=== PATIENT | female | born 1960 | race Caucasian/White ===

== ENCOUNTER → 2017-01-23 | Outpatient (CLI) | payer OTHER ==
[~2017-01-23] MED LIST: AC325T; CETI10TA20 PO; CPR500T PO; HYDR50CA PO; METR500T PO; MTP25TSR PO; PNT40TEC PO; RT-ALBUTEROL SULF 2.5 MG/3 ML PRE-MIX VIAL IH ONE
== END ==
LOC: RT 13:48
PROVIDERS: ATTEND Internal Medicine
DX: R06.09 Other forms of dyspnea (principal)
CPT/HCPCS: 94060; 94640; 94726; 94729

== ENCOUNTER → 2017-03-05 | Outpatient (CLI) | payer OTHER ==
[~2017-03-05] MED LIST changes: +CATHETER FLUSH 10 ML SYR IV PRN; +IOHEXOL 350 MG/ML 150 ML (OMNIPAQUE 350) VIAL IV ONE; +NS 100 ML (IVPB) BAG IV ONE; -RT-ALBUTEROL SULF 2.5 MG/3 ML PRE-MIX VIAL IH ONE
[2017-03-05 12:21] LABS: BLOOD UREA NITROGEN 8 MG/DL (7-18); BUN/CREATININE RATIO 11; CREATININE SERUM 0.76 MG/DL (0.60-1.30); GFR ESTIMATED > 60
--- NOTE | 2017-03-05 13:11 | Diagnostic Imaging Report ---
INDICATION: Bilateral edema. TECHNIQUE: Multiple real-time grayscale images were obtained over the lower extremities in various projections bilaterally. Duplex Doppler and color Doppler images were also obtained. FINDINGS: The common femoral, femoral and popliteal veins demonstrate normal response to compression, augmentation and Valsalva. There are no abnormal lower extremity fluid collections or masses. IMPRESSION: No evidence of deep venous thrombosis in either lower extremity. Dictated by: Dictated on workstation # [id number]
--- NOTE | 2017-03-05 13:30 | Diagnostic Imaging Report ---
PROCEDURE: CT angiography of the chest with contrast. TECHNIQUE: Multiple contiguous axial images were obtained through the chest after uneventful bolus administration of intravenous contrast. Reconstructed CTA MIP acquisitions were also performed. INDICATION: Shortness of air. Chest pain. COMPARISON: None. FINDINGS: There is no evidence of acute pulmonary embolus in the first subsegmental division of the pulmonary arteries. Heart size is within normal limits. There is no large pericardial effusion. Few subcentimeter left perihilar lymph nodes are noted. Otherwise, no abnormal mediastinal, hilar, nor axillary adenopathy is identified. There is moderate image degradation of the lung bowser secondary to motion artifact. No focal consolidation, pleural effusion, nor pneumothorax is identified. No pulmonary nodules or masses are seen. Bony structures show no acute abnormalities. No lytic or blastic bony lesion is seen. Included portions of the upper abdomen are unremarkable. IMPRESSION: 1. No evidence of acute pulmonary embolus in the first subsegmental division of pulmonary arteries. 2. Otherwise, no acute cardiopulmonary process. Dictated by: Dictated on workstation # [id number]
== END ==
LOC: RAD 11:53
PROVIDERS: ATTEND Nurse Practitioner Family
DX: R06.00 Dyspnea, unspecified (principal); R94.2 Abnormal results of pulmonary function studies; M79.89 Other specified soft tissue disorders; J45.909 Unspecified asthma, uncomplicated; R07.9 Chest pain, unspecified
CPT/HCPCS: 36415; 71275; 82565; 84520; 93970

== ENCOUNTER → 2018-11-05 | Outpatient (CLI) | payer OTHER ==
[~2018-11-05] MED LIST changes: -CATHETER FLUSH 10 ML SYR IV PRN; -IOHEXOL 350 MG/ML 150 ML (OMNIPAQUE 350) VIAL IV ONE; -NS 100 ML (IVPB) BAG IV ONE; +RT-ALBUTEROL SULF 2.5 MG/3 ML PRE-MIX VIAL INH ONE
== END ==
LOC: RT 15:02
PROVIDERS: ATTEND Nurse Practitioner Family
DX: J42 Unspecified chronic bronchitis (principal); J45.909 Unspecified asthma, uncomplicated; R06.00 Dyspnea, unspecified; R94.2 Abnormal results of pulmonary function studies
CPT/HCPCS: 94060; 94726; 94729

== ENCOUNTER 2018-11-11 05:38 | Outpatient (CLI) | payer OTHER ==
[~2018-11-11] VITALS: Ht 149.9 cm; Wt 79.4 kg
[~2018-11-11 05:38] MED LIST changes: -RT-ALBUTEROL SULF 2.5 MG/3 ML PRE-MIX VIAL INH ONE
[2018-11-11] MEDS ORDERED: CETI10TA20 PO (10:27)
[2018-11-11] MEDS ORDERED: METF-397 PO (10:27)
[2018-11-11] MEDS ORDERED: SERT50TA2 PO (10:27)
[2018-11-11] MEDS ORDERED: METO-351 PO (10:27)
[2018-11-11] MEDS ORDERED: FLUT1BLS IH (10:27)
[2018-11-11] MEDS ORDERED: MONT10TA21 PO (10:27)
== END 2018-11-11 10:32 | disposition home or self-care (01) ==
LOC: PREOP 05:38
PROVIDERS: ATTEND Surgery
DX: Z01.818 Encounter for other preprocedural examination (principal)

== ENCOUNTER 2018-11-18 08:35 | Day surgery (SDC) | payer OTHER ==
[~2018-11-18] VITALS: Ht 149.9 cm; Wt 79.4 kg
[~2018-11-18 08:35] MED LIST changes: +FLUT1BLS IH; +METF-397 PO; +METO-351 PO; +MONT10TA21 PO; +SERT50TA2 PO
[2018-11-18] MEDS ORDERED: LACTATED RINGERS 1,000 ML IV STA (08:43)
[2018-11-18] MEDS ORDERED: LACTATED RINGERS 1,000 ML IV ONE (08:55)
[2018-11-18] MEDS ORDERED: PROPOFOL INJECTION 50 ML IV ONE (09:16)
[2018-11-18] MEDS ORDERED: MIDAZOLAM 2 MG/2 ML (VERSED) VIAL ONE (09:16)
--- NOTE | 2018-11-18 09:27 | Progress Note-Pre Operative ---
Pre-Operative Progress Note H&P Reviewed The H&P was reviewed, patient examined and no changes noted. Date Seen by Provider: November 18, 2018 Time Seen by Provider: 09:25 Date H&P Reviewed: November 18, 2018 Time H&P Reviewed: :25 Pre-Operative Diagnosis: hx washington's, luq abd pain, screening colonoscopy MEENA SULLIVAN DO November 18, 2018 09:27
[2018-11-18] MEDS ORDERED: HURRICAINE EXT TUBE (BENZOCAINE) ONE (09:34)
[2018-11-18] MEDS: HURRICAINE EXT TUBE (BENZOCAINE) XX PRN ×2 (09:40→10:30)
--- NOTE | 2018-11-18 10:13 | Anesthesia-General Post-Op ---
MAC Patient Condition Mental Status/LOC: Same as Preop Cardiovascular: Satisfactory Nausea/Vomiting: Absent Respiratory: Satisfactory Pain: Controlled Complications: Absent Post Op Complications Complications None Follow Up Care/Instructions Patient Instructions None needed. Anesthesiology Discharge Order Discharge Order Patient is doing well, no complaints, stable vital signs, no apparent adverse anesthesia problems. No complications reported per nursing. JAVAD CAT CRNA November 18, 2018 10:13
--- NOTE | 2018-11-18 10:18 | Progress Note-Post Operative ---
Post-Operative Progess Note Surgeon (s)/Assistant Curator (s) Surgeon MEENA SULLIVAN DO Assistant Curator: na Pre-Operative Diagnosis hx washington's, luq abd pain, screening colonoscopy Post-Operative Diagnosis hiatal hernia, washington's, gastritis,diverticulosis, gastric polyp Procedure & Operative Findings Date of Procedure 11/18/18 Procedure Performed/Findings egd c biopsies, colonoscopy c snare polypectomy Anesthesia Type per instrument processing tech Estimated Blood Loss Estimated blood loss (mL): none Specimens/Packing Specimens Removed antrum body and ge, sigmoid polyp MEENA SULLIVAN DO November 18, 2018 10:18
[2018-11-18 10:20] VITALS: BP 141/79
[2018-11-18] MEDS ORDERED: PANT40TA2 PO (10:24)
--- NOTE | 2018-11-18 10:25 | Discharge Inst-Simple/Standard ---
Discharge Inst-Standard Discharge Medications New, Converted or Re-Newed RX: Transmitted to Pharmacy Patient Instructions/Follow Up Plan of Care/Instructions/FU: 2 weeks Bairon Activity as Tolerated: Yes Discharge Diet: Regular Diet MEENA SULLIVAN DO November 18, 2018 10:25
[2018-11-18 10:33] VITALS: BP 142/97
[2018-11-18 10:50] VITALS: BP 154/90
[2018-11-18 11:00] VITALS: BP 154/90
--- NOTE | 2018-11-18 15:46 | OPERATIVE REPORT ---
DATE OF SERVICE: 11/18/2018 PREOPERATIVE DIAGNOSES: History of Han's, left upper quadrant abdominal pain, screening colonoscopy. POSTOPERATIVE DIAGNOSES: Hiatal hernia, short segment Han's, gastritis, diverticulosis, colon polyp, sigmoid colon. PROCEDURES PERFORMED: Esophagogastroduodenoscopy with biopsies, colonoscopy with snare polypectomy, sigmoid colon. SURGEON: Meena Waddell DO. ANESTHESIA: Per BOILER COVERER HELPER. ESTIMATED BLOOD LOSS: None. COMPLICATIONS: None. SPECIMENS: Antrum, body, GE and sigmoid colon polyp. INDICATIONS: The patient is a 58-year-old female in need of screening colonoscopy and having left upper quadrant abdominal pain and history of Han esophagus. She understands risks and benefits of procedure and wished to proceed with procedure. Consent was signed on the chart. DESCRIPTION OF PROCEDURE: The patient was taken to the endoscopy suite, placed in left lateral recumbent position. Timeout was performed. Scope was inserted in mouth, down the esophagus, stomach and into the duodenum without difficulty. There were no polyps, mass or ulcerations within the duodenum. Scope was slowly retracted back into the stomach, which was further insufflated. Some slight erythematous changes consistent with gastritis and also two small gastric polyps present. Biopsy of the antrum was obtained. Biopsy of the body was obtained. Scope was retroflexed noting a small hiatal hernia, no other pathology noted. Scope was then slowly retracted back. Four-quadrant biopsies were obtained of the distal esophagus, the area of the short segment of Han's. Scope was then slowly retracted back until completely removed, noting no other pathology. Digital rectal exam was performed. No palpable polyps, masses or ulcerations. Scope was inserted into the rectum and advanced all the way to the cecum with minimal difficulty. Prep was adequate. Scope was then slowly retracted back. There were no polyps, masses or ulcerations of the cecum, ascending, transverse and descending colon. Diverticulosis present within the sigmoid colon. A polyp also present within the sigmoid colon. Snare polypectomy was performed. Specimen was obtained. Scope was slowly retracted back until in the rectum, noting no other pathology and the scope was retroflexed noting no other pathology. Scope was returned to its normal position, slowly until completely removed, noting no other pathology. The patient tolerated procedure well without complications. She was sent to recovery room in stable condition. RECOMMENDATIONS: The patient will be started on Protonix 40 mg daily. The patient will need repeat colonoscopy in 3-5 years. The patient will follow up in the office in 2 weeks to discuss pathology. If she has any issues before that, she should be reevaluated at that time. Job ID: [id number] DocumentID: [id number] Dictated Date: 11/18/2018 10:28:45 Engineering Program Manager Date: 11/18/2018 15:46:09 Dictated By: MEENA WADDELL DO
== END 2018-11-18 11:00 | disposition home or self-care (01) ==
LOC: ENDO 08:35
PROVIDERS: ATTEND Surgery
DX: Z12.11 Encounter for screening for malignant neoplasm of colon (principal); D12.5 Benign neoplasm of sigmoid colon; K57.30 Diverticulosis of large intestine without perforation or abscess without bleeding; K22.70 Barrett's esophagus without dysplasia; K44.9 Diaphragmatic hernia without obstruction or gangrene; K29.70 Gastritis, unspecified, without bleeding; I10 Essential (primary) hypertension; J45.909 Unspecified asthma, uncomplicated; Z79.84 Long term (current) use of oral hypoglycemic drugs; Z79.899 Other long term (current) drug therapy
CPT/HCPCS: 82962

== ENCOUNTER → 2019-11-16 | Outpatient (CLI) | payer OTHER ==
[~2019-11-16] MED LIST changes: +CATHETER FLUSH 10 ML SYR IV PRN; +CETI10TA21 PO; +HOLD METFORMIN - RECEIVED CONTRAST 20 ML VIAL IV SCH; +IOHEXOL 350 MG/ML 100 ML (OMNIPAQUE 350) VIAL IV ONE; +NS 100 ML (IVPB) BAG IV ONE; +PANT40TA2 PO
[2019-11-16 15:21] LABS: BASOPHILS % (AUTO) 0 % (0-10); EOSINOPHILS # (AUTO) 0.3 10^3/uL (0.0-0.3); EOSINOPHILS % (AUTO) 3 % (0-10); HEMATOCRIT 41 % (35-52); HEMOGLOBIN 12.5 G/DL (11.5-16.0); LYMPHOCYTES # (AUTO) 2.7 X 10^3 (1.0-4.0); LYMPHOCYTES % (AUTO) 26 % (12-44); MEAN CORPUSCULAR HEMOGLOBIN 26 PG (25-34); MEAN CORPUSCULAR HGB CONC 31 G/DL (32-36); MEAN CORPUSCULAR VOLUME 83 FL (80-99); MEAN PLATELET VOLUME 11.7 FL (7.4-10.4); MONOCYTES # (AUTO) 0.6 X 10^3 (0.0-1.0); MONOCYTES % (AUTO) 6 % (0-12); NEUTROPHILS % (AUTO) 65 % (42-75); PLATELET COUNT 334 10^3/uL (130-400); RED CELL DISTRIBUTION WIDTH 15.8 % (10.0-14.5); WHITE BLOOD COUNT 10.8 10^3/uL (4.3-11.0)
[2019-11-16 15:34] LABS: CREATININE SERUM 0.86 MG/DL (0.60-1.30); GFR ESTIMATED > 60
[2019-11-16 15:35] LABS: BUN/CREATININE RATIO 9
--- NOTE | 2019-11-16 16:12 | Diagnostic Imaging Report ---
PROCEDURE: CT angiography Chest TECHNIQUE: After intravenous administration of contrast, thin section axial CT angiography of the chest was performed. 3D MIP reconstructions were made. All CT scans use one or more of the following dose optimizing techniques: automated exposure control, MA and/or KvP adjustment based on a patient size and exam type, or iterative reconstruction. INDICATION: Dyspnea, leg swelling. COMPARISON: CTA chest of 03/05/2017 FINDINGS: Vasculature: No pulmonary emboli. No CT evidence of pulmonary hypertension or right ventricular strain. Thoracic aorta is normal in caliber. No aortic dissection or pseudoaneurysm. Heart and mediastinum: Visualized thyroid is normal. No supraclavicular, axillary, or intra-thoracic lymphadenopathy. The heart is normal in size without pericardial effusion. Pleura: No pleural effusion or pneumothorax. Lungs and airway: No endoluminal lesion in the trachea or central bronchi. No pulmonary mass, nodule or consolidation. Upper abdomen: Allowing for the phase of contrast, no acute abnormality in the upper abdomen is seen. Musculoskeletal: No concerning osseous lesion. IMPRESSION: 1. No acute cardiopulmonary process. Specifically, no pulmonary emboli or acute aortic syndrome. 2. No pulmonary edema or other features to suggest congestive heart failure. Dictated by: Dictated on workstation # [id number]
--- NOTE | 2019-11-16 16:29 | Diagnostic Imaging Report ---
INDICATION: Injury of the right leg. Shortness of air. COMPARISON: None. TECHNIQUE: Duplex, irwin-scale and color-flow imaging of the bilateral lower extremity venous system was performed. FINDINGS: The common femoral vein, superficial femoral vein, profunda femoris, and popliteal veins are normal. These vessels show normal compressibility, color flow, and doppler augmentation. The deep calf veins, although not very well seen, demonstrate no distinct intraluminal thrombus. IMPRESSION: Negative venous Doppler of the bilateral lower extremities. Dictated by: Dictated on workstation # [id number]
== END ==
LOC: RAD 15:04
PROVIDERS: ATTEND Nurse Practitioner Family
DX: M79.89 Other specified soft tissue disorders (principal); J45.909 Unspecified asthma, uncomplicated; J42 Unspecified chronic bronchitis; J30.2 Other seasonal allergic rhinitis; Z91.81 History of falling
CPT/HCPCS: 36415; 71275; 82565; 84520; 85025; 93970

== ENCOUNTER → 2020-09-05 | Outpatient (CLI) | payer OTHER ==
[~2020-09-05] MED LIST changes: -CATHETER FLUSH 10 ML SYR IV PRN; -CETI10TA21 PO; +CETI10TA49 PO; -HOLD METFORMIN - RECEIVED CONTRAST 20 ML VIAL IV SCH; -IOHEXOL 350 MG/ML 100 ML (OMNIPAQUE 350) VIAL IV ONE; -NS 100 ML (IVPB) BAG IV ONE
--- NOTE | 2020-09-05 11:46 | Diagnostic Imaging Report ---
PROCEDURE: MRI lumbar spine. TECHNIQUE: Multiplanar, multisequence MRI of the lumbar spine was performed without contrast. INDICATION: Bilateral feet numbness. No prior studies are available for comparison. Curvature and alignment of the lumbar spine is normal. Vertebral body heights are maintained. Marrow signal intensity is unremarkable. There is some mild disc desiccation multiple levels of the lumbar spine. The disc spaces are well maintained. Conus is unremarkable at the L1 level. T12-L1: Central canal and neural foramina are widely patent. L1-2: Central canal and neural foramina are widely patent. L2-L3: Central canal and neural foramina are widely patent. L3-L4: Central canal and neural foramina are widely patent. L4-L5. Minimal annular bulging is present, flattening of the ventral thecal sac but no resultant central canal or neural foraminal narrowing is seen. There are some mild facet degenerative changes. L5-S1: Mild wide-base disc bulging is seen but no central canal or neural foraminal narrowing is detected. Paraspinous tissues are unremarkable. IMPRESSION: Mild lumbar spondylosis. No focal disc protrusion, central canal or neural foraminal stenosis is detected. Dictated by: Dictated on workstation # [id number]
== END ==
LOC: RAD 10:35
PROVIDERS: ATTEND Internal Medicine
DX: M47.26 Other spondylosis with radiculopathy, lumbar region (principal)
CPT/HCPCS: 72148